=== PATIENT | male | born 2000 | race African-American/Black ===

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

== ENCOUNTER 2019-11-02 06:48 | Emergency (ER) | payer OTHER, MEDICAID ==
[~2019-11-02] VITALS: Ht 165.1 cm; Wt 55.0 kg
[2019-11-02 06:57] VITALS: BP 120/73
[2019-11-02] MEDS ORDERED: BACITRACIN ZINC OINT UDPKT TOP ONE (07:15)
== END 2019-11-02 09:07 | disposition home or self-care (01) ==
LOC: ER 06:48
DX: S00.81XA Abrasion of other part of head, initial encounter (principal); X58.XXXA Exposure to other specified factors, initial encounter; Y93.9 Activity, unspecified; Y92.9 Unspecified place or not applicable; R03.0 Elevated blood-pressure reading, without diagnosis of hypertension
CPT/HCPCS: 99284

== ENCOUNTER 2022-11-28 08:31 | Emergency (ER) | payer MEDICAID, OTHER ==
[~2022-11-28] VITALS: Ht 162.6 cm; Wt 86.0 kg
[2022-11-28 08:36] VITALS: BP 134/72; PULSE 66; RESP 16; O2SAT 100
[2022-11-28] MEDS ORDERED: ACETAMINOPHEN 325MG TABLET PO ONE (08:45)
[2022-11-28 08:52] VITALS: TEMP 98.5
== END 2022-11-28 11:07 | disposition home or self-care (01) ==
LOC: ER 09:00
DX: S05.11XA Contusion of eyeball and orbital tissues, right eye, initial encounter (principal); Y04.0XXA Assault by unarmed brawl or fight, initial encounter; Y93.89 Activity, other specified; Y92.89 Other specified places as the place of occurrence of the external cause; Y99.8 Other external cause status
CPT/HCPCS: 70486; 99284